=== PATIENT | male | born 1980 | race Caucasian/White ===

== ENCOUNTER → 2017-12-29 00:28 | Outpatient (CLI) | payer OTHER, SELFPAY ==
[2017-12-29 00:47] VITALS: BMI 40.8
[2017-12-29 00:48] VITALS: BP 135/93; PULSE 123; RESP 24; TEMP 37.1
== END | disposition home or self-care (01) ==
PROVIDERS: PCP Family Medicine; Visit Provider Emergency Medicine
DX: R52 Pain, unspecified (principal); M79.1 Myalgia

== ENCOUNTER → 2019-12-19 17:17 | Outpatient (CLI) | payer OTHER, SELFPAY ==
[2019-12-19 17:41] LABS: Basophils # 0.1 K/mm3 (0-0.2); Basophils % 0.6 % (0.1-2.0); Eosinophils # 0.4 K/mm3 (0.0-0.4); Eosinophils % 3.9 % (0.1-12.0); Hematocrit 50.5 % (42.0-52.0); Hemoglobin 16.8 g/dL (14.1-18.0); Lymphocytes # 3.1 K/mm3 (0.7-4.5); Lymphocytes % 33.5 % (10-50); Mean Corpuscular HGB Conc 33.4 g/dL (31.8-35.4); Mean Corpuscular Hemoglobin 31.9 pg (27.0-31.2); Mean Corpuscular Volume 95.7 fl (80-94); Mean Platelet Volume 7.8 fl (7.4-10.4); Monocytes # 0.5 K/mm3 (0.1-1.0); Monocytes % 5.5 % (1.7-9.3); Neutrophils # 5.2 K/mm3 (1.8-7.8); Neutrophils % 56.5 % (37.0-80.0); Platelet Count 224 K/mm3 (142-424); Red Blood Count 5.28 M/mm3 (4.60-6.20); Red Cell Distribution Width 12.6 % (11.5-17.5); White Blood Count 9.3 K/mm3 (4.8-10.8)
[2019-12-19 18:34] LABS: Hemoglobin A1C 7.7 % (0.0-7.0)
[2019-12-19 18:55] LABS: Alanine Aminotransferase 125 U/L (12-78); Albumin Level 3.8 gm/dL (3.4-5.0); Albumin/Globulin Ratio 1.1 (1.1-1.8); Alkaline Phosphatase 97 U/L (46-116); Aspartate Amino Transferase 49 U/L (15-37); Bilirubin,Total 0.7 mg/dL (0.2-1.0); Blood Urea Nitrogen 15 mg/dL (7-18); Chloride 101 mmol/L (98-107); Chol/HDL Ratio 4.7 (1-3.5); Cholesterol 204 mg/dL (140-200); Creatinine,Serum 1.03 mg/dL (0.70-1.30); Estimated Glomerular Filt Rate 80 ml/min (>60); Ferritin 629 ng/mL (8-388); GFR (African American) 97 ML/MIN (>60); Globulin 3.5 gm/dl (1.3-3.2); Glucose 108 mg/dL (74-106); HDL Cholesterol 43 mg/dL (27-67); LDL Cholesterol 135 mg/dL (0-130); Sodium 140 mmol/L (136-145); Thyroid Stimulating Hormone 2.18 uIU/ml (0.358-3.740); Total Protein,Serum 7.3 gm/dL (6.4-8.2); Triglycerides 132 mg/dL (30-200); VLDL Cholesterol 26 mg/dL (0-40)
[2019-12-19 19:30] LABS: Carbon Dioxide 30 mmol/L (21.0-32.0)
== END ==
PROVIDERS: Visit Provider Family Medicine
DX: E78.5 Hyperlipidemia, unspecified (principal); R94.5 Abnormal results of liver function studies; R73.9 Hyperglycemia, unspecified; I10 Essential (primary) hypertension
CPT/HCPCS: 36415; 80053; 80061; 82728; 83036; 84443; 85025

== ENCOUNTER → 2019-12-26 13:21 | Outpatient (CLI) | payer OTHER, SELFPAY | PROVIDERS: PCP Family Medicine; Visit Provider Family Medicine | DX: G47.33 Obstructive sleep apnea (adult) (pediatric) (principal); R06.83 Snoring; I10 Essential (primary) hypertension; E66.9 Obesity, unspecified | CPT/HCPCS: 95806 ==

== ENCOUNTER → 2020-08-30 10:29 | Outpatient (CLI) | payer BC, SELFPAY ==
--- NOTE | 2020-08-30 10:36 | XR_ITS ---
PROCEDURE: XR KNEE RT 3V CLINICAL INDICATION: PAIN IN RT KNEE COMPARISON: CR KNEE3R KNEE-3 VIEWS-RT from 10/30/2013 FINDINGS: The medial lateral joint space appear normal. There is a small fabella. 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 There is no definite effusion. IMPRESSION: No acute findings. Dictated by: Dr. Navjot Yuan MD 08/30/2020 11:06 Dr. Navjot Yuan MD in [place] 08/30/2020 11:06
== END ==
PROVIDERS: PCP Family Medicine; Visit Provider Family Medicine
DX: M25.561 Pain in right knee (principal)
CPT/HCPCS: 73562

== ENCOUNTER 2021-02-04 23:50 | Observation (INO) | payer BC, SELFPAY ==
[2021-02-04 23:50] VITALS: BP 156/88; PULSE 98; RESP 18; TEMP 36.9; O2SAT 95; BMI 41.5
--- NOTE | 2021-02-04 23:55 | XR_ITS ---
PROCEDURE: XR CHEST PORTABLE CLINICAL HISTORY: cp Chest pain, smoker COMPARISON: CR CXR CHEST(2 VIEWS-NOT PORTABLE) from 10/30/2013 FINDINGS: The cardiomediastinal silhouette and pulmonary vascularity are within normal limits. The lungs are clear without infiltrates, suspicious nodules, or pleural effusions. The right CP angle is cut from the image. No acute bony findings. IMPRESSION: No acute finding. The right CP angle is cut off from the image. Consider repeating exam to include the right CP angle if symptoms warrant Dictated by: Berto Toney MD 02/05/2021 05:29 Berto Toney MD in [place] 02/05/2021 05:29
--- NOTE | 2021-02-04 23:56 | ECG_ITS ---
APPROVED REPORT Exam: Resting ECG HR:105 bpm ECG Measurements Heart Rate 105 AXES OK 126 P 54 QRSd 86 QRS 45 QT 340 T 45 QTc 449 Conclusion Sinus tachycardia Otherwise normal ECG Electronically signed by : Donn Gonzalez, 02/05/2021 07:01:57
[2021-02-05] VITALS (9 sets, daily range): BP systolic 93–140; BP diastolic 55–74; PULSE 62–84; RESP 14–18; TEMP 36.6–37.2; O2SAT 95–98; BMI 41.8; BMI 41.6
--- NOTE | 2021-02-05 00:07 | HMH.EDCP ---
ED Disposition Clinical Impression: Unstable angina pectoris Disposition: Admitted as Observation Condition on Discharge: Good Referrals: Cristian Dhillon MD [Primary Care Provider] - - Critical Care Critical Care Time: No Attestation: On , the high probability of a clinically significant, sudden or life threatening deterioration of the following system(s) required my full and direct attention, intervention and personal management. The time I documented below is in addition to time spent performing reported procedures but includes the following listed in this critical care notation. Medical Decision Making - Medical Records Medical records reviewed: Yes: I reviewed the patient's medical records. - Gilles Inquiry Pt receiving controlled substance: No Vital Signs: 02/04/21 23:50 Temperature 98.4 F Temperature Source Oral Pulse Rate [Right] 98 H Respiratory Rate 18 Blood Pressure [Right Arm] 156/88 H Blood Pressure Mean [Right Arm] 110 02 Sat by Pulse Oximetry 95 - Lab Data Lab results reviewed: Yes: I reviewed the patient's lab results. Lab Results 02/05/21 00:15: WBC 11.2 H, RBC 5.14, Hgb 15.9, Hct 49.1, MCV 95.6 H, MCH 30.9, MCHC 32.3, RDW 12.9, Plt Count 185, MPV 7.9, Neut % (Auto) 60.4, Lymph % (Auto) 30.3, [place] % (Auto) 5.4, Eos % (Auto) 3.6, Baso % (Auto) 0.3, Neut # (Auto) 6.7, Lymph # (Auto) 3.4, [place] # (Auto) 0.6, Eos # (Auto) 0.4, Baso # (Auto) 0.0 02/05/21 00:15: Sodium 137, Potassium 3.7, Chloride 102, Carbon Dioxide 26, Anion Gap 12.7, BUN 19, Creatinine 0.90, Estimated Creat Clear 113, Estimated GFR 93, Est GFR ( Amer) 113, Glucose 176 H, Calcium 9.7, Troponin I < 0.01, C-Reactive Protein 3.3 02/05/21 00:15: ESR 18 H Result diagrams: 02/05/21 00:15 02/05/21 00:15 Orders (Tests/Meds): ED MEDICATIONS Generic Name Dose Route Start Last Admin Trade Name Freq PRN Reason Stop Dose Admin Sodium Chloride 1,000 mls @ 999 mls/hr 02/04/21 23:45 02/05/21 00:01 Sod Chlor 0.9% 1000ml Bag IV 02/05/21 00:45 999 mls/hr .Q1H1M CRISTELA Administration Nitroglycerin 0.4 mg 02/04/21 23:57 02/05/21 00:00 Nitroglycerin 0.4mg Sl Tablet SL 03/06/21 23:56 0.4 mg Q5MINP PRN Administration Chest Pain Sodium Chloride 8 ml 02/05/21 02:00 Sodium Chloride 0.9% 10ml Vial IV 03/07/21 01:59 NEEDED PRN dilute pepcid Discontinued Medications Generic Name Dose Route Start Last Admin Trade Name Freq PRN Reason Stop Dose Admin Aspirin 324 mg 02/04/21 23:57 02/05/21 00:00 Aspirin 81mg Chewable Tablet PO 02/04/21 23:58 324 mg ONCE ONE Administration Famotidine 20 mg 02/05/21 02:00 02/05/21 02:02 Famotidine 20mg/2ml Vial IV 02/05/21 02:01 20 mg ONCE ONE Administration Ketorolac Tromethamine 30 mg 02/04/21 23:57 02/05/21 01:17 Ketorolac 30mg/Ml Vial IV 02/04/21 23:58 Not Given ONCE ONE Metoclopramide HCl 10 mg 02/05/21 02:00 02/05/21 02:02 Metoclopramide Hcl 10mg/2ml Vial IVP 02/05/21 02:01 10 mg ONCE ONE Administration Morphine Sulfate 4 mg 02/05/21 00:03 02/05/21 00:13 Morphine 4mg/Ml Syringe IV 02/05/21 00:04 4 mg ONCE ONE Administration Ondansetron HCl 4 mg 02/04/21 23:57 02/05/21 00:00 Ondansetron 4mg/2ml Vial IV 02/04/21 23:58 4 mg ONCE ONE Administration Promethazine HCl 25 mg 02/05/21 00:58 02/05/21 01:16 Promethazine Hcl 25mg/Ml 1ml Vial IV 02/05/21 00:59 25 mg ONCE ONE Administration Sodium Chloride 25 ml 02/05/21 00:58 02/05/21 01:17 Sodium Chloride 0.9% 25ml Bag IV 02/05/21 00:59 25 ml ONCE ONE Administration ORDERS Category Date Time Status XR chest portable Stat Exams 02/04/21 23:55 Taken Full Resp Panel w/COVID ([facility]) Routine Lab 02/05/21 00:30 Received Hemoglobin A1C Stat Lab 02/05/21 00:15 Received Procalcitonin Stat Lab 02/04/21 23:56 Received Troponin I Q3H Lab 02/05/21 03:00 Ordered Troponin I Q3H Lab 02/05/21 06:00 Ordered - R
[2021-02-05 00:25] LABS: Basophils % 0.3 % (0.1-2.0); Eosinophils # 0.4 K/mm3 (0.0-0.4); Eosinophils % 3.6 % (0.1-12.0); Hematocrit 49.1 % (42.0-52.0); Hemoglobin 15.9 g/dL (14.1-18.0); Lymphocytes # 3.4 K/mm3 (0.7-4.5); Lymphocytes % 30.3 % (10-50); Mean Corpuscular HGB Conc 32.3 g/dL (31.8-35.4); Mean Corpuscular Hemoglobin 30.9 pg (27.0-31.2); Mean Corpuscular Volume 95.6 fl (80-94); Mean Platelet Volume 7.9 fl (7.4-10.4); Monocytes # 0.6 K/mm3 (0.1-1.0); Monocytes % 5.4 % (1.7-9.3); Neutrophils # 6.7 K/mm3 (1.8-7.8); Neutrophils % 60.4 % (37.0-80.0); Platelet Count 185 K/mm3 (142-424); Red Blood Count 5.14 M/mm3 (4.60-6.20); Red Cell Distribution Width 12.9 % (11.5-17.5); White Blood Count 11.2 K/mm3 (4.8-10.8)
[2021-02-05 00:32] LABS: Chloride 102 mmol/L (98-107)
[2021-02-05 00:33] LABS: Sodium 137 mmol/L (136-145)
[2021-02-05 00:35] LABS: Blood Urea Nitrogen 19 mg/dl (9-20); Creatinine Clearance Estimated 113 mL/min (50-200); Estimated Glomerular Filt Rate 93 ml/min (>60); GFR (African American) 113 ML/MIN (>60); Potassium 3.7 mmoL/L (3.5-5.1)
[2021-02-05 00:36] LABS: Anion Gap 12.7 mEq/L (5-15); Calcium 9.7 mg/dl (8.4-10.2); Carbon Dioxide 26 mmol/L (22.0-30.0); Glucose 176 mg/dl (74-100)
[2021-02-05 00:41] LABS: C-Reactive Protein 3.3 mg/L (0-4)
[2021-02-05 01:22] LABS: Troponin I < 0.01 ng/ml (0.00-0.034)
[2021-02-05 01:28] LABS: Erythrocyte Sedimentation Rate 18 mm/hr (0-15)
[2021-02-05 01:30] LABS: Adenovirus,PCR Not Detected (NotDetected); Bordetella Pertussis Not Detected (NotDetected); Chlamydophila Pneumoniae, PCR Not Detected (NotDetected); Coronavirus 19, PCR Not Detected (NotDetected); Coronavirus 229E Not Detected (NotDetected); Coronavirus NL63 Not Detected (NotDetected); Coronavirus OC43 Not Detected (NotDetected); Coronovirus HKU1,PCR Not Detected (NotDetected); Human Metapneumovirus Not Detected (NotDetected); Influenza A, PCR Not Detected (NotDetected); Influenza AH1, 2009 Not Detected (NotDetected); Influenza AH1, PCR Not Detected (NotDetected); Influenza AH3,PCR Not Detected (NotDetected); Influenza B, PCR Not Detected (NotDetected); Mycoplasma Pneumoniae, PCR Not Detected (NotDetected); Parainfluenza 1, PCR Not Detected (NotDetected); Parainfluenza 2, PCR Not Detected (NotDetected); Parainfluenza 3, PCR Not Detected (NotDetected); Parainfluenza 4, PCR Not Detected (NotDetected); Respiratory Syncytial Virus Not Detected (NotDetected); Rhinovirus/Enterovirus Not Detected (NotDetected)
[2021-02-05 02:09] LABS: Hemoglobin A1C 7.7 % (4.0-6.0)
[2021-02-05 02:40] LABS: Procalcitonin 0.073 ng/mL (0.0-2.0)
--- NOTE | 2021-02-05 03:03 | PC.NURSE ---
PT ARRIVED TO FLOOR VIA W/C FROM ED W/STAFF AT 0303
[2021-02-05 03:25] LABS: Troponin I < 0.01 ng/ml (0.00-0.034)
[2021-02-05 06:26] LABS: Anion Gap 8.7 mEq/L (5-15); Basophils % 0.4 % (0.1-2.0); Blood Urea Nitrogen 18 mg/dl (9-20); Carbon Dioxide 25 mmol/L (22.0-30.0); Chloride 106 mmol/L (98-107); Chol/HDL Ratio 3.3 (1-3.5); Cholesterol 118 mg/dl (140-200); Creatinine Clearance Estimated 113 mL/min (50-200); Eosinophils # 0.4 K/mm3 (0.0-0.4); Eosinophils % 3.5 % (0.1-12.0); Estimated Glomerular Filt Rate 93 ml/min (>60); GFR (African American) 113 ML/MIN (>60); Glucose 162 mg/dl (74-100); HDL Cholesterol 36 mg/dl (40-60); Hematocrit 44.9 % (42.0-52.0); Hemoglobin 14.5 g/dL (14.1-18.0); Lymphocytes # 3.7 K/mm3 (0.7-4.5); Mean Corpuscular HGB Conc 32.3 g/dL (31.8-35.4); Mean Corpuscular Hemoglobin 30.9 pg (27.0-31.2); Mean Corpuscular Volume 95.8 fl (80-94); Mean Platelet Volume 8.3 fl (7.4-10.4); Monocytes # 0.6 K/mm3 (0.1-1.0); Monocytes % 5.4 % (1.7-9.3); Neutrophils # 6.5 K/mm3 (1.8-7.8); Neutrophils % 57.7 % (37.0-80.0); Platelet Count 191 K/mm3 (142-424); Potassium 3.7 mmoL/L (3.5-5.1); Red Blood Count 4.69 M/mm3 (4.60-6.20); Sodium 136 mmol/L (136-145); Triglycerides 132 mg/dl (30-150); VLDL Cholesterol 26 mg/dL (0-40); White Blood Count 11.2 K/mm3 (4.8-10.8)
[2021-02-05 06:44] LABS: Troponin I < 0.01 ng/ml (0.00-0.034)
[2021-02-05 07:11] LABS: Calcium 8.5 mg/dl (8.4-10.2)
--- NOTE | 2021-02-05 07:26 | HMH.PHAVTE ---
[facility] Pharmacy VTE Monitoring - Patient Demographics Admission date: 02/04/21 Report Date: 02/05/21 Time: 07:26 Allergies/Adverse Reactions: Patient Allergies No Known Allergies Allergy (Unverified 02/05/21 07:25) Height: 1.78 m Weight: 132.024 kg Patient Problems: Current Active Problems Unstable angina pectoris (Acute) - VTE Risk Labs: VTE Related Lab Results Hgb 14.5 g/dL (14.1-18.0) 02/05/21 05:37 Hct 44.9 % (42.0-52.0) 02/05/21 05:37 Plt Count 191 K/mm3 (142-424) 02/05/21 05:37 BUN 18 mg/dl (9-20) 02/05/21 05:37 Creatinine 0.90 mg/dl (0.66-1.25) 02/05/21 05:37 Estimated Creat Clear 113 mL/min (50-200) 02/05/21 05:37 VTE Score: 1 - Prophylaxis VTE Prophylaxis Ordered?: Yes Types of VTE Prophylaxis: TEDS Knee High Location of Applied Device: Bilateral Lower Extremeties
--- NOTE | 2021-02-05 07:26 | HMH.PHAINT ---
MEDICATION RECONCILIATION COMPLETED ON PATIENT USING EXTERNAL FILL HISTORY FROM PHARMACY. -UYEN FELDER, HECTORD
--- NOTE | 2021-02-05 08:00 | CA_ITS ---
APPROVED REPORT EXAM: Comprehensive 2D, Doppler, and color-flow Echocardiogram Cook Dessert: María Ogden RVT Ht: 5 ft 10 in Wt: 290lbs BSA: 2.44 BP: 156/88 mmHg Indications: CP,OBESITY,DM,HTN,FAMILY HX HD,HX SMOKING 2D Dimensions LVOT 2.21 cm (M/F) 1.5-2.5 LA Volume 29.10 mL LA Volume Index 11.92 mL/m2 (M/F) 16-34 M-Mode Dimensions RVDd 2.46 cm (0.9-2.6) LA Diam 3.86 cm (1.9-4.0) LVDd 6.46 cm (3.5-5.7) Ao Diam 2.85 cm (2.0-3.7) LVDs 4.12 cm (3.5-5.7) IVSd 0.34 cm (0.6-1.1) PWd 0.59 cm (0.6-1.1) EF (Teich) 64.70% FS 36.20% EDV (Teich) 213.00 mL ESV (Teich) 75.10 mL LV Diastology E Decel Time 197.00 (160-240 msec) E/A Ratio 1.2 MED E' 10.10 (< 7 cm/sec) E'/MED E' Ratio 8.62 (>14) LAT E' 12.60 (<10 cm/sec) E/LAT E' Ratio 6.91 (>14) Mitral Valve MV E Max Johny. 87.00 (40-130 cm/s) MV A Velocity 73.00 (40-130 cm/s) E/A Ratio 1.19 MV Decel. Time 197.00 (160-240 ms) MV PHT 58.00 ms Pulmonary Valve PV Peak Velocity 57.00 (50-150 cm/s) Tricuspid Valve TR P. Velocity 273.00 cm/s RAP Estimate 10.00 mmHg RVSP 39.90 mmHg Left Ventricle Left atrium is normal size, left ventricle is normal size, there is no concentric left ventricular hypertrophy, visually estimated ejection fraction 55% with no regional wall motion abnormality, diastolic parameters are within normal range. Right Ventricle Right atrium and right ventricle are normal size and contractility. Aortic Valve Aortic valve is minimally thickened and fibrosed, there is no aortic stenosis or aortic insufficiency. Mitral Valve Mitral valve grossly normal, there is trace mitral regurgitation. Tricuspid Valve Tricuspid grossly normal, there is trace tricuspid regurgitation, tricuspid regurgitation jet velocity is inadequate for calculation of the right ventricular systolic pressure. Pulmonic Valve Pulmonic valve is poorly visualized. Great Vessels Aortic root is normal size. Pericardium No significant pericardial effusion noted. Conclusion 1. Normal left ventricular size, preserved left ventricular systolic function, visually estimated ejection fraction 55% with no regional wall motion abnormality, diastolic parameters are within normal range. 2. Trace mitral and tricuspid regurgitation. 3. No significant pericardial effusion noted. Electronically signed by : Luis Cruz, 02/05/2021 09:29:41
--- NOTE | 2021-02-05 08:18 | HMH.HP ---
*Admission Date: 02/04/21 <Shikha Hernandez - 02/05/21 08:31> *Chief complaint: chest pain <Shikha Hernandez 02/05/21 08:31> *History of present illness: Mr. Yousif is a 40-year-old male with a history of hypertension and hyperlipidemia who presented to the ER last night with chest pain. Patient states he had a very long day at work. He had a migraine throughout the day which went away with some [id number] migraine medication. He also had some nausea and has had nausea for the past 2 weeks with eating. He states he went on a work call last night in [facility] and had to do heavy lifting and carry someone up a hill. He states he got very short of breath and began having pain all across his chest. He was extremely nauseated and felt like he could vomit. He felt like someone was sitting on his chest and therefore presented to the emergency room. He states he was very anxious that he was having a heart attack. He was diaphoretic and his heart was racing. He states they did an EKG in the emergency room and when he was told it was clear, he did begin feeling somewhat better. He was given morphine and this did not seem to help. He was given Phenergan and he states this made him sleep and this morning his chest pain, shortness of breath, and nausea has resolved. <Shikha Hernandez - 02/05/21 08:31> [facility] History I have reviewed the patient's past medical history: Yes <Shikha Hernandez 02/05/21 08:31> Medical History: Reports:: Depression, Diabetes Mellitus Type 2, Hyperlipidemia, Hypertension Denies:: Cancer, Diabetes Mellitus Type 1, Internal Pacemaker, MRSA <Shikha Hernandez 02/05/21 08:31> *Have you ever received a pneumonia vaccine?: No <Shikha Hernandez 02/05/21 08:31> *Have you received a flu vaccine this season?: Yes <Shikha Hernandez 02/05/21 08:31> Other Medical History: Reports: Other <Shikha Hernandez 02/05/21 08:31> Other Surgeries: Yes: No Previous Surgery. No: Pacemaker <Shikha Hernandez 02/05/21 08:31> Amputation: No <Shikha Hernandez 02/05/21 08:31> Fractures: Yes <Shikha Hernandez 02/05/21 08:31> - *Social History Last grade of school completed: Advanced degree <Shikha Hernandez 02/05/21 08:31> Smoking Status: Current every day smoker <Shikha Hernandez 02/05/21 08:31> Tobacco Type: cigarettes <Shikha Hernandez 02/05/21 08:31> # Packs/Day (cigarettes): 1 <Shikha Hernandez 02/05/21 08:31> Alcohol Intake: current <Shikha Hernandez 02/05/21 08:31> Alcohol Intake Frequency:: holidays/special occasions only <Shikha Hernandez 02/05/21 08:31> Substance Use Type: denies use <Shikha Hernandez 02/05/21 08:31> *Occupational Status:: employed <Shikha Hernandez 02/05/21 08:31> Housing: house <Shikha Hernandez 02/05/21 08:31> Household Members: spouse <Shikha Hernandez 02/05/21 08:31> *Travel in the last 8 weeks: None <Shikha Hernandez 02/05/21 08:31> - Psychiatric History Pschychiatric History:: Reports:: Depression <Shikha Hernandez 02/05/21 08:31> Family Hx:: Diabetes, Heart Attack, Hyperlipidemia, Hypertension, Alcoholism <Shikha Hernandez 02/05/21 08:31> Review of Systems - Constitutional Denies chills, Denies fever(s), Denies weakness <Shikha Hernandez 02/05/21 08:31> - Eyes Denies blurry vision, Denies double vision <Shikha Hernandez 02/05/21 08:31> - ENT Denies nasal congestion, Denies sore throat <Shikha Hernandez 02/05/21 08:31> - *Cardiovascular Reports chest pain, Reports shortness of breath, Reports rapid, pounding, or irregular heartbeat, Denies leg swelling, Denies radiating jaw, neck or arm pain <Shikha Hernandez 02/05/21 08:31> - *Respiratory Reports shortness of breath, Denies cough <Shikha Hernandez 02/05/21 08:31> - *Gastrointestinal Reports abdominal pain (epigastric), Reports nausea, Denies loose stools, Denies vomiting <Shikha Hernandez 02/05/21 08:31> - *Genitourinary Denies difficulty urinating, Denies painful urination <Shikha Hernandez 02/05/21 08:31> - *Musculoskeletal Reports
--- NOTE | 2021-02-05 10:31 | US_ITS ---
PROCEDURE: US ABDOMEN LIMITED CLINICAL INDICATION: chest pain COMPARISON: No exams were available for comparison FINDINGS: PANCREAS: Unremarkable. No obvious mass or abnormal fluid collection. No ductal dilatation LIVER: No focal liver lesions demonstrated. Homogeneous echogenicity. No intrahepatic biliary ductal dilatation evident. There is appropriate direction of blood flow within a non dilated portal vein RIGHT KIDNEY: Unremarkable. Normal size and echogenicity. No hydronephrosis GALLBLADDER: There is an 8 mm stone in the region of the neck of the gallbladder. The gallbladder is slightly distended measuring 9 x 4.4 cm. No gallbladder wall thickening or pericholecystic fluid evident. Common bile duct is normal at 3 mm. IMPRESSION: 8 mm stone in the neck of the gallbladder with mild gallbladder distention Dictated by: Berto Toney MD 02/05/2021 13:54 Berto Toney MD in [place] 02/05/2021 13:54
[2021-02-05 13:59] LABS: Alanine Aminotransferase 52 U/L (12-78); Alkaline Phosphatase 90 U/L (38-126); Aspartate Amino Transferase 34 U/L (17-59); Bilirubin,Direct 0.1 mg/dl (0.0-0.4); Bilirubin,Indirect 0.4 mg/dL (0.0-0.9); Bilirubin,Total 0.5 mg/dl (0.2-1.3); Bilirubin,Unconjugated 0.4 mg/dL (0.0-1.1)
[2021-02-05 14:00] LABS: Albumin Level 3.8 g/dl (3.5-5.0); Total Protein,Serum 6.9 g/dl (6.3-8.2)
--- NOTE | 2021-02-05 16:44 | HMH.GSCON ---
*Admission Date: 02/04/21 *Reason for consult:: Cholelithiasis; GB distention; epigastric/right upper quadrant pain *History of present illness: This is a 40-year-old gentleman seen in consultation from Dr. Dhillon for evaluation regarding epigastric/right upper quadrant pain, cholelithiasis, and gallbladder distention. He presented to the emergency department overnight with increasing epigastric pain/chest pain. He was concerned about possible myocardial infarction. Evaluation has included an EKG and cardiac enzymes. No obvious sign of infarction noted. An additional complaint was of recent severe nausea. An ultrasound was completed for evaluation of his gallbladder. A stone within the neck of the gallbladder was noted. Some concomitant distention was also noted. Forwarded from admission H&P: Mr. Yousif is a 40-year-old male with a history of hypertension and hyperlipidemia who presented to the ER last night with chest pain. Patient states he had a very long day at work. He had a migraine throughout the day which went away with some [id number] migraine medication. He also had some nausea and has had nausea for the past 2 weeks with eating. He states he went on a work call last night in [facility] and had to do heavy lifting and carry someone up a hill. He states he got very short of breath and began having pain all across his chest. He was extremely nauseated and felt like he could vomit. He felt like someone was sitting on his chest and therefore presented to the emergency room. He states he was very anxious that he was having a heart attack. He was diaphoretic and his heart was racing. He states they did an EKG in the emergency room and when he was told it was clear, he did begin feeling somewhat better. He was given morphine and this did not seem to help. He was given Phenergan and he states this made him sleep and this morning his chest pain, shortness of breath, and nausea has resolved. Review of Systems - Constitutional Denies fever(s) - Eyes Denies change in vision - ENT Denies difficulty swallowing - *Cardiovascular Denies fainting - *Respiratory Denies cough - *Gastrointestinal Reports abdominal pain, Reports nausea - *Genitourinary Denies blood in urine - *Musculoskeletal Denies deformity - Integumentary/Breasts Denies new lesions - *Neurologic Reports headache(s), Denies localized weakness, Denies seizure-like activity, Denies dizziness, Denies weakness - Psychiatric Denies anxiety - Endocrine Denies cold intolerance - Hematologic/Lymphatic Denies easy bleeding - Allergic/Immunologic Denies wheezing [facility] History Medical History: Reports:: Depression, Diabetes Mellitus Type 2, Hyperlipidemia, Hypertension Denies:: Cancer, Diabetes Mellitus Type 1, Internal Pacemaker, MRSA *Have you ever received a pneumonia vaccine?: No *Have you received a flu vaccine this season?: Yes Other Medical History: Reports: Other Other Surgeries: Yes: No Previous Surgery. No: Pacemaker Amputation: No Fractures: Yes - *Social History Last grade of school completed: Advanced degree Smoking Status: Current every day smoker Tobacco Type: cigarettes # Packs/Day (cigarettes): 1 Alcohol Intake: current Alcohol Intake Frequency:: holidays/special occasions only Substance Use Type: denies use *Occupational Status:: employed Housing: house Household Members: spouse *Travel in the last 8 weeks: None - Psychiatric History Pschychiatric History:: Reports:: Depression Family Hx:: Diabetes, Heart Attack, Hyperlipidemia, Hypertension, Alcoholism Meds Home Medications Medication Instructions Recorded Confirmed Type metformin 500 mg tablet 500 mg PO BIDWM 09/18/20 02/05/21 History Atorvastatin Calcium [Lipitor 40mg 40 mg PO HS 02/05/21 02/05/21 History Tab] Fluoxetine HCl [Prozac 20mg 20 mg PO DAILY 02/05/21 02/05/21 History Capsule] lisinopriL [Zestril 10mg Tab] 10 mg P
--- NOTE | 2021-02-05 18:32 | PC.NURSE ---
Pt is a&ox4. Pt has complained of pain x1, not requiring any pain medications. PRN medications ordered for pain per MD Dhillon this shift. Pt remains NSR on tele. Pt walks independently in room w/ steady balance and gait. No other acute changes or complaints at this time.
[2021-02-06] VITALS (23 sets, daily range): BP systolic 104–155; BP diastolic 43–91; PULSE 54–109; RESP 14–20; TEMP 36.4–43; O2SAT 90–100; BMI 41.7
--- NOTE | 2021-02-06 06:47 | HMH.GSPN ---
Subjective Patient reports: feels better, still having pain Progress Note: A&P (1) Hypertension Status: Acute (2) Hyperlipemia Status: Acute (3) Type 2 diabetes mellitus Status: Acute (4) Unstable angina pectoris Status: Acute (5) Cholelithiasis Status: Acute (6) Gallbladder hydrops Status: Acute Assessment and plan: Cholecystectomy later today (7) Epigastric pain Status: Acute (8) Right upper quadrant abdominal tenderness Status: Acute Exam Vital signs and Labs for Last 24 Hours: Temp Pulse Resp BP Pulse Ox 97.6 F 64 16 130/67 99 02/06/21 04:00 02/06/21 04:00 02/06/21 04:00 02/06/21 04:00 02/06/21 04:00 Laboratory Results - last 24 hr 02/05/21 05:37: Sodium 136, Potassium 3.7, Chloride 106, Carbon Dioxide 25, Anion Gap 8.7, BUN 18, Creatinine 0.90, Estimated Creat Clear 113, Estimated GFR 93, Est GFR ( Amer) 113, Glucose 162 H, Calcium 8.5 D, Triglycerides 132, Cholesterol 118 L, LDL Cholesterol Direct 48.70 L, VLDL Cholesterol 26, HDL Cholesterol 36 L, Cholesterol/HDL Ratio 3.3 02/05/21 05:37: Total Bilirubin 0.5, Direct Bilirubin 0.1, Conjugated Bilirubin 0.0, Indirect Bilirubin 0.4, Unconjugated Bilirubin 0.4, AST 34, ALT 52, Alkaline Phosphatase 90, Total Protein 6.9, Albumin 3.8 I & O for Last 24 hours: Intake & Output 02/03/21 02/04/21 02/05/21 02/06/21 11:59 11:59 11:59 11:59 Intake Total 1999 240 / 240 Balance 1999 240 / 240 Weight 291 lb 1 oz 291 lb 5 oz - Constitutional no acute distress - *Routine Respiratory Exam Absent: respiratory distress - *Routine Cardiovascular Exam Present: RRR
--- NOTE | 2021-02-06 07:03 | PC.NURSE ---
Patient VS WNL throughout shift. Consent form signed for Laproscopic Cholesectomy. Shows no s/s of acute distress noted at this time. Call light within reach, bed at lowest level for safety. Will continue to monitor.
--- NOTE | 2021-02-06 08:19 | HMH.ACPN2 ---
<Shikha Hernandez - Last Filed: 02/06/21 08:19> Internal Medicine - PN: Subj *Date: 02/06/21 *Time: 08:19 Interval history: Patient states he feels great this morning. He has had no further pain since yesterday. He slept well. He was seen by Dr. Reed who plans to take out his gallbladder today. Exam Vital signs and Labs for Last 24 Hours: Temp Pulse Resp BP Pulse Ox 97.8 F 72 16 127/80 95 02/06/21 08:00 02/06/21 08:00 02/06/21 08:00 02/06/21 08:00 02/06/21 08:00 Laboratory Results - last 24 hr 02/05/21 05:37: Total Bilirubin 0.5, Direct Bilirubin 0.1, Conjugated Bilirubin 0.0, Indirect Bilirubin 0.4, Unconjugated Bilirubin 0.4, AST 34, ALT 52, Alkaline Phosphatase 90, Total Protein 6.9, Albumin 3.8 I & O for Last 24 hours: Intake & Output 02/03/21 02/04/21 02/05/21 02/06/21 11:59 11:59 11:59 11:59 Intake Total 1999 840 / 840 Balance 1999 840 / 840 Weight 291 lb 1 oz 291 lb 5 oz Radiology Reports for the Last 24 Hours: Echo 1. Normal left ventricular size, preserved left ventricular systolic function, visually estimated ejection fraction 55% with no regional wall motion abnormality, diastolic parameters are within normal range. 2. Trace mitral and tricuspid regurgitation. 3. No significant pericardial effusion noted. RUQ U/S 8 mm stone in the neck of the gallbladder with mild gallbladder distention - Constitutional no acute distress - *Routine Respiratory Exam Present: CTA bilaterally - *Routine Cardiovascular Exam Present: RRR - *Routine Abdominal Exam Present: soft, normoactive bowel sounds. Absent: tenderness - *Routine Extremities Exam Absent: cyanosis, clubbing, edema - *Routine Skin Exam Present: warm. Absent: rash - *Routine Neurological Exam Present: alert, oriented X3 Assessment and Plan (1) Hypertension Status: Acute Category: Medical Code(s): I10 - Essential (primary) hypertension (2) Hyperlipemia Status: Acute Category: Medical Code(s): E78.5 - Hyperlipidemia, unspecified (3) Type 2 diabetes mellitus Status: Acute Category: Medical Code(s): E11.9 - Type 2 diabetes mellitus without complications (4) Unstable angina pectoris Status: Acute Category: Medical Code(s): I20.0 - Unstable angina (5) Cholelithiasis Status: Acute Category: Medical Code(s): K80.20 - Calculus of gallbladder without cholecystitis without obstruction (6) Gallbladder hydrops Status: Acute Category: Medical Code(s): K82.1 - Hydrops of gallbladder (7) Epigastric pain Status: Acute Category: Medical Code(s): R10.13 - Epigastric pain (8) Right upper quadrant abdominal tenderness Status: Acute Category: Medical Code(s): R10.811 - Right upper quadrant abdominal tenderness - Assessment and plan all Dx Assessment and Plan for all problems:: Patient is scheduled for gallbladder removal today. <Cristian Dhillon - Last Filed: 02/06/21 08:48> Internal Medicine - PN: Subj *Date: 02/06/21 *Time: 08:47 Exam Vital signs and Labs for Last 24 Hours: Temp Pulse Resp BP Pulse Ox 97.8 F 72 16 127/80 95 02/06/21 08:00 02/06/21 08:00 02/06/21 08:00 02/06/21 08:00 02/06/21 08:00 Laboratory Results - last 24 hr 02/05/21 05:37: Total Bilirubin 0.5, Direct Bilirubin 0.1, Conjugated Bilirubin 0.0, Indirect Bilirubin 0.4, Unconjugated Bilirubin 0.4, AST 34, ALT 52, Alkaline Phosphatase 90, Total Protein 6.9, Albumin 3.8 I & O for Last 24 hours: Intake & Output 02/03/21 02/04/21 02/05/21 02/06/21 23:59 23:59 23:59 23:59 Intake Total 2240 / 2240 600 / 600 Balance 2240 / 2240 600 / 600 Weight 290 lb 291 lb 0.163 oz 291 lb 5 oz Assessment and Plan (1) Hypertension Status: Acute Category: Medical Code(s): I10 - Essential (primary) hypertension (2) Hyperlipemia Status: Acute Category: Medical Code(s): E78.5 - Hyperlipidemia, unspecified (3) Type 2 diabetes jose
--- NOTE | 2021-02-06 15:29 | PC.NURSE ---
Pt off floor in surgery at this time.
--- NOTE | 2021-02-06 16:29 | HMH.ANESCL ---
[facility] Anesthesia Checklist - Patient Identification Patient Identification: Arm Band - Structural Data Admitted From: Home Planned Operative Procedure/s: laparoscopic cholecystectomy Consent for Planned Operative Procedure(s) Verified: Yes Verified Documents: Surgical Consent, History and Physical - NPO Status Verified Time NPO: 00:00 - Additional verifications Anesthesia Reactions: No - Airway Assessment C-Spine Mobility Assessed: Yes (mp2) TMJ Mobility Assessed: Yes Dentition: Good Dentition - Neurological Assessment Level of Consciousness: Awake, Alert - Anesthesia Plan Anesthesia Risk discussed: Yes Anesthesia Plan: Verified ASA Class: III Anesthesia Type: General [facility] History I have reviewed the patient's past medical history: Yes Medical History: Reports:: Depression, Diabetes Mellitus Type 2, Hyperlipidemia, Hypertension Denies:: Cancer, Diabetes Mellitus Type 1, Internal Pacemaker, MRSA *Have you ever received a pneumonia vaccine?: No *Have you received a flu vaccine this season?: Yes Other Medical History: Reports: Other Anesthesia experience/problems:: nac Other Surgeries: Yes: Other. No: Pacemaker Amputation: No Fractures: Yes - *Social History Last grade of school completed: Advanced degree Smoking Status: Current every day smoker Tobacco Type: cigarettes # Packs/Day (cigarettes): 1 Alcohol Intake: current Alcohol Intake Frequency:: holidays/special occasions only Substance Use Type: denies use *Occupational Status:: employed Housing: house Household Members: spouse *Travel in the last 8 weeks: None - Psychiatric History Pschychiatric History:: Reports:: Depression Family Hx:: Diabetes, Heart Attack, Hyperlipidemia, Hypertension, Alcoholism
--- NOTE | 2021-02-06 16:45 | PC.NURSE ---
Pt continues to be off floor at this time in surgery.
--- NOTE | 2021-02-06 17:10 | HMH.OPNOTE ---
Date of procedure: 02/06/21 Pre-op Diagnosis:: Gallbladder hydrops Symptomatic cholelithiasis Acute calculus cholecystitis Post-op Diagnosis:: Same Procedure performed:: Laparoscopic cholecystectomy Surgeon:: Wilber Reed MD ORANGE PICKING SUPERVISOR:: Onel Gomez Anesthesia: GETA Estimated blood loss (mL): 10 Operative findings:: Gallbladder distention Infundibular thickening Operative note:: After informed consent was obtained, the patient was taken to the operating room and placed in the supine position. General anesthesia was induced and the abdomen was prepped and draped in a sterile fashion. After infiltration with local anesthetic an infraumbilical incision was made. A Veress needle was placed in position. The abdomen was insufflated. A 5 mm optical trocar was placed in position. Under direct visualization, a 12 mm trocar was placed in the subxiphoid position and 2 additional 5 mm trocars were placed in the right upper quadrant. The gallbladder was elevated up and over the liver margin. The tissue around the cystic duct was carefully dissected. 3 clips were placed proximally and the duct was transected with harmonic renata. Harmonic renata were then utilized to dissect the gallbladder away from the liver margin with careful attention to the control of the cystic artery. The gallbladder was placed in a retrieval bag and removed through the subxiphoid trocar site. The right upper quadrant was thoroughly irrigated. No active bleeding or bile leak was noted. Fascia at the subxiphoid trocar site was reapproximated utilizing the NeoClose device. The remaining trocars were removed. All wounds were irrigated and skin was closed with 4-0 Monocryl in a subcuticular fashion. Steri-Strips were applied. The patient's anesthetic agents were reversed and extubation was completed prior to transfer to recovery in stable condition. Condition: stable Disposition: PACU Specimens:: Gallbladder and contents Complications:: No immediate
--- NOTE | 2021-02-06 17:13 | HMH.ANESI ---
[facility] Anesthesia Record Part I Intake, IV Amount: 900 Estimated blood loss (mL): 10 Urine output (mL): 0 Blood Pressure: 110/43 SaO2: 90 Pulse Rate: 73 Respiratory Rate: 16 Temperature: 99.3 F Patient is:: Drowsy, Stable Stable to PACU at:: 17:05
[2021-02-06 17:19] LABS: POC Glucose,Bedside 134 (70-110)
--- NOTE | 2021-02-06 17:24 | SUR.PHASEI ---
1712-checked fsbs with results of 134, notified Lissett,HOME SERVICE DIRECTOR no further orders
--- NOTE | 2021-02-06 17:43 | PC.NURSE ---
1731-detailed report called to BROOKS Rios 1736-pt transported to med surg room 215 via hospital bed w/ramesh rails up and left in care of BROOKS Rios with bed locked in lowest position, vss, pt stable
--- NOTE | 2021-02-06 20:36 | PC.NURSE ---
Pt has had prn norco and zofran since coming back to floor from pacu. Pt did eat some supper and states nausea has improved some and has been intermittently sleeping. VSS. Dsgs to abd are cdi and the top dsg does have scant amt of sangious drainage. BROOKS Turner has been given report on pt. Call masterson in reach.
[2021-02-07 00:25] VITALS: BP 121/77; PULSE 109; RESP 16; TEMP 36.8; O2SAT 93
[2021-02-07 04:00] VITALS: BP 124/75; PULSE 90; RESP 18; TEMP 36.3; O2SAT 95
[2021-02-07 05:00] VITALS: BMI 41.3
--- NOTE | 2021-02-07 06:00 | PC.NURSE ---
NO ACUTE CHANGES FROM PREVIOUS ASSESSMENT,NO NEW DRAINAGE TO TOP LAP SITE FROM [place],PT DENIES PASSING ANY FLATUS JUST,BELCHING MEDICATED A COUPLE TIMES TONIGHT.POSTIVE BOWEL SOUNDS X 4 QUADS
--- NOTE | 2021-02-07 06:49 | HMH.GSPN ---
Subjective Patient reports: no new complaints (He states that he feels good enough to go home ) Progress Note: A&P (1) Hypertension Status: Acute (2) Hyperlipemia Status: Acute (3) Type 2 diabetes mellitus Status: Acute (4) Cholelithiasis Status: Acute (5) Gallbladder hydrops Status: Acute Assessment and plan: Overall, doing well status post laparoscopic cholecystectomy. Likely discharge home soon with outpatient follow-up. (6) Epigastric pain Status: Acute (7) Right upper quadrant abdominal tenderness Status: Acute Exam Vital signs and Labs for Last 24 Hours: Temp Pulse Resp BP Pulse Ox 98.3 F 109 H 16 121/77 93 L 02/07/21 00:25 02/07/21 00:25 02/07/21 00:25 02/07/21 00:25 02/07/21 00:25 Laboratory Results - last 24 hr 02/06/21 17:12: POC Glucose 134 H I & O for Last 24 hours: Intake & Output 02/04/21 02/05/21 02/06/21 02/07/21 11:59 11:59 11:59 11:59 Intake Total 1999 840 / 840 1260 / 1260 Balance 1999 840 / 840 1260 / 1260 Weight 291 lb 1 oz 291 lb 5 oz - Constitutional no acute distress - *Routine Respiratory Exam Absent: respiratory distress - *Routine Cardiovascular Exam Present: tachycardia - *Routine Abdominal Exam Present: soft, tenderness (Appropriate postoperative tenderness) Comments: Dressings in place. No erythema.
[2021-02-07 08:00] VITALS: BP 145/79; PULSE 71; RESP 18; TEMP 36.8; O2SAT 94
--- NOTE | 2021-02-07 08:15 | HMH.ACPN2 ---
<Shikha Hernandez - Last Filed: 02/07/21 08:15> Internal Medicine - PN: Subj *Date: 02/07/21 *Time: 08:15 Interval history: The patient had his gallbladder removed yesterday. He tolerated this well and feels better today other than pain along the surgical sites in his stomach. He was able to rest and has eaten. He feels he can go home today. Exam Vital signs and Labs for Last 24 Hours: Temp Pulse Resp BP Pulse Ox 97.4 F L 90 18 124/75 95 02/07/21 04:00 02/07/21 04:00 02/07/21 04:00 02/07/21 04:00 02/07/21 04:00 Laboratory Results - last 24 hr 02/06/21 17:12: POC Glucose 134 H I & O for Last 24 hours: Intake & Output 02/04/21 02/05/21 02/06/21 02/07/21 11:59 11:59 11:59 11:59 Intake Total 1999 840 / 840 1858 / 1858 Balance 1999 840 / 840 1858 / 1858 Weight 291 lb 1 oz 291 lb 5 oz 289 lb 1 oz - Constitutional no acute distress - *Routine Respiratory Exam Present: CTA bilaterally - *Routine Cardiovascular Exam Present: RRR - *Routine Abdominal Exam Present: soft, normoactive bowel sounds, tenderness (Around surgical sites, dressings in place) - *Routine Extremities Exam Absent: cyanosis, clubbing, edema - *Routine Skin Exam Present: warm. Absent: rash - *Routine Neurological Exam Present: alert, oriented X3 Assessment and Plan (1) Hypertension Status: Acute Category: Medical Code(s): I10 - Essential (primary) hypertension (2) Hyperlipemia Status: Acute Category: Medical Code(s): E78.5 - Hyperlipidemia, unspecified (3) Type 2 diabetes mellitus Status: Acute Category: Medical Code(s): E11.9 - Type 2 diabetes mellitus without complications (4) Cholelithiasis Status: Acute Category: Medical Code(s): K80.20 - Calculus of gallbladder without cholecystitis without obstruction (5) Gallbladder hydrops Status: Acute Category: Medical Code(s): K82.1 - Hydrops of gallbladder (6) Epigastric pain Status: Acute Category: Medical Code(s): R10.13 - Epigastric pain (7) Right upper quadrant abdominal tenderness Status: Acute Category: Medical Code(s): R10.811 - Right upper quadrant abdominal tenderness - Assessment and plan all Dx Assessment and Plan for all problems:: Patient can likely be discharged today and will need a prescription for some pain medication. He will need to follow-up with Dr. Reed. <Cristian Dhillon - Last Filed: 02/07/21 09:02> Internal Medicine - PN: Subj *Date: 02/07/21 *Time: 09:02 Exam Vital signs and Labs for Last 24 Hours: Temp Pulse Resp BP Pulse Ox 97.4 F L 90 18 124/75 95 02/07/21 04:00 02/07/21 04:00 02/07/21 04:00 02/07/21 04:00 02/07/21 04:00 Laboratory Results - last 24 hr 02/06/21 17:12: POC Glucose 134 H I & O for Last 24 hours: Intake & Output 02/04/21 02/05/21 02/06/21 02/07/21 23:59 23:59 23:59 23:59 Intake Total 2240 / 2240 1860 / 1860 598 / 598 Balance 2240 / 2240 1860 / 1860 598 / 598 Weight 290 lb 291 lb 0.163 oz 291 lb 5 oz 289 lb 1 oz Assessment and Plan (1) Hypertension Status: Acute Category: Medical Code(s): I10 - Essential (primary) hypertension (2) Hyperlipemia Status: Acute Category: Medical Code(s): E78.5 - Hyperlipidemia, unspecified (3) Type 2 diabetes mellitus Status: Acute Category: Medical Code(s): E11.9 - Type 2 diabetes mellitus without complications (4) Cholelithiasis Status: Acute Category: Medical Code(s): K80.20 - Calculus of gallbladder without cholecystitis without obstruction (5) Gallbladder hydrops Status: Acute Category: Medical Code(s): K82.1 - Hydrops of gallbladder (6) Epigastric pain Status: Acute Category: Medical Code(s): R10.13 - Epigastric pain (7) Right upper quadrant abdominal tenderness Status: Acute Category: Medical Code(s): R10.811 - Right upper quadrant abdominal tenderness - Assessment and plan all Dx Assessment and Plan f
--- NOTE | 2021-02-07 15:25 | P.PN_ITS ---
[facility] Anesthesia Record Part II Discharge Time: 17:35 Destination: floor PACU nurse assessment reviewed?: Yes Patient Condition:: Good Anesthesia Complications:: None Swallowing reflex intact?: Yes Cyanosis?: No Blood Pressure: 153/87 Pulse Rate: 63 Temperature: 98.3 F Mental Status: Alert & Oriented Pain level:: 2 Nausea and/or vomitting:: None Intake, IV Amount: 1,500
[2021-02-07 15:26] VITALS: BP 153/87; PULSE 63; TEMP 36.8
--- NOTE | 2021-02-12 14:35 | HMH.DCSUM ---
General - General Admission date:: 02/05/21 Discharge date: 02/07/21 HPI HPI: Mr. Yousif is a 40-year-old male with a history of hypertension and hyperlipidemia who presented to the ER last night with chest pain. Patient states he had a very long day at work. He had a migraine throughout the day which went away with some [id number] migraine medication. He also had some nausea and has had nausea for the past 2 weeks with eating. He states he went on a work call last night in 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 He states he got very short of breath and began having pain all across his chest. He was extremely nauseated and felt like he could vomit. He felt like someone was sitting on his chest and therefore presented to the emergency room. He states he was very anxious that he was having a heart attack. He was diaphoretic and his heart was racing. He states they did an EKG in the emergency room and when he was told it was clear, he did begin feeling somewhat better. He was given morphine and this did not seem to help. He was given Phenergan and he states this made him sleep and this morning his chest pain, shortness of breath, and nausea has resolved. Hospital Course Hospital Course: The patient was admitted and his chest x-ray showed nothing acute. His sed rate and white blood cell count were slightly elevated but his cardiac enzymes were normal x3. His chest pain resolved and was ruled out for TX with EKG and enzymes. It was felt he would need a stress test and he wanted his case discussed with Dr. Singh Rivero who is a beading machine operator in [place]. He had an echo showing an EF of 55%. An abdominal ultrasound was ordered due to his abdominal discomfort and nausea. It showed an 8 mm stone in the neck of the gallbladder with mild gallbladder distention. Surgery was consulted and it was felt he would need cholecystectomy. He had a laparoscopic cholecystectomy performed on 02/06/2021 and tolerated the procedure well. By 02/07/2021 he was stable to be discharged home with outpatient follow-up. Objective Vital signs: Temp Pulse Resp BP Pulse Ox 98.3 F 63 18 153/87 H 94 L 02/07/21 15:26 02/07/21 15:26 02/07/21 08:00 02/07/21 15:26 02/07/21 08:00 Narrative: - Constitutional no acute distress - *Routine HEENT Exam Head: Present: normocephalic Eye: Present: EOMI, PERRL ENT: Present: mucous membranes moist - *Routine Neck Exam Present: supple. Absent: lymphadenopathy - *Routine Respiratory Exam Present: CTA bilaterally - *Routine Cardiovascular Exam Present: RRR - *Routine Abdominal Exam Present: soft, normoactive bowel sounds. Absent: tenderness - *Routine Extremities Exam Absent: cyanosis, clubbing, edema - *Routine Skin Exam Present: warm. Absent: rash - *Routine Neurological Exam Present: alert, oriented X3 DS: Diagnosis - Discharge Diagnosis (1) Hypertension Status: Acute (2) Hyperlipemia Status: Acute (3) Type 2 diabetes mellitus Status: Acute (4) Cholelithiasis Status: Acute (5) Gallbladder hydrops Status: Acute (6) Epigastric pain Status: Acute (7) Right upper quadrant abdominal tenderness Status: Acute Discharge Plan - Patient Discharge Instructions ACTIVITY: Continue current activity DIET: continue same diet Patient Instructions: DI for Gallstones, DI for Laparoscopic Cholecystectomy - Follow up Plan Follow up with: Wilber Reed MD [Staff Physician] - 02/19/21 1:00 pm (1-2 weeks) Disposition: Home, Self-Group Home Medications: Home Medications Medication Instructions Recorded Confirmed Type metformin 500 mg tablet 500 mg PO BIDWM 09/18/20 02/05/21 History Atorvastatin Calcium [Lipitor 40mg 40 mg PO HS 02/05/21 02/05/21 History Tab] Fluoxetine HCl [Prozac 20mg 20 mg PO DAILY 02/05/21 02/05/21 History Capsule] lisinopriL [Zestril 10
== END 2021-02-07 10:27 | disposition home or self-care (01) ==
LOC: ER 02-05 00:11 → 2ND 02-05 02:34
PROVIDERS: Surgery; Admitting Provider Family Medicine; Emergency Provider Emergency Medicine; PCP Family Medicine; Visit Provider Family Medicine
PROC: 0FT44ZZ Resection of Gallbladder, Percutaneous Endoscopic Approach (ICD-10-PCS; CPT 47562; principal; 2021-02-06 13:30)
DX: K80.00 Calculus of gallbladder with acute cholecystitis without obstruction (principal); E11.9 Type 2 diabetes mellitus without complications; Z79.84 Long term (current) use of oral hypoglycemic drugs; K82.1 Hydrops of gallbladder; I10 Essential (primary) hypertension; E78.5 Hyperlipidemia, unspecified; G43.909 Migraine, unspecified, not intractable, without status migrainosus; Z72.0 Tobacco use; I20.0 Unstable angina
CPT/HCPCS: 47562; 36415; 71045; 76705; 80048; 80061; 80076; 82962; 83036; 84145; 84484; 85025; 85651; 86140; 87581; 87633; 87798; 93005; 93306; 96365; 96375; 99284; G0378; J2405; J2710

== ENCOUNTER 2021-07-26 12:45 | Outpatient (CLI) | payer BC, SELFPAY ==
[2021-07-26 13:30] VITALS: BP 115/66; PULSE 73; RESP 16; TEMP 36.7; O2SAT 95
[2021-07-26 15:15] VITALS: BP 128/79; PULSE 78; RESP 15; TEMP 36.8; O2SAT 98
== END 2021-07-26 15:16 | disposition home or self-care (01) ==
LOC: COVID.OUT 12:46 → INF 12:50
PROVIDERS: PCP Family Medicine; Visit Provider Internal Medicine Adolescent Medicine
DX: U07.1 COVID-19 (principal)
CPT/HCPCS: 96365

== ENCOUNTER → 2021-09-03 13:15 | Outpatient (CLI) | payer BC, SELFPAY ==
--- NOTE | 2021-09-03 13:20 | MR_ITS ---
PROCEDURE INFORMATION: Exam: MR Right Lower Extremity Joint Without Contrast, Knee Exam date and time: 09/03/2021 1:20 PM Age: 41 years old Clinical indication: Pain; Knee; Right; Additional info: Right anterior knee pain , locking of right knee. Right anterior knee pain, old injury. TECHNIQUE: Imaging protocol: MR of the Right lower extremity joint without contrast. Exam focused on the knee. COMPARISON: CR XR KNEE RT 3V 08/30/2020 10:48 AM FINDINGS: Bones/joints: No acute fracture. Prominent bipartite patella. Small ossicles along tibial tuberosity. No dislocation. Mild signal changes within cartilage along lateral facet of patella at synchondrosis. Fluid: No significant joint effusion. No Sommers's cyst. Medial meniscus: Intrasubstance signal abnormality. No definite tear. Lateral meniscus: No definite tear. Anterior cruciate ligament: Intact. Posterior cruciate ligament: Intact. Medial capsule and supporting structures: Intact. Lateral capsule and supporting structures: Intact. Extensor mechanism of knee: Intact. Muscles: Unremarkable. Soft tissues: Unremarkable. IMPRESSION: 1. No acute findings. 2. Prominent bipartite patella.
--- NOTE | 2021-09-03 13:21 | MR_ITS ---
PROCEDURE INFORMATION: Exam: MR Lumbar Spine Without Contrast Exam date and time: 09/03/2021 1:21 PM Age: 41 years old Clinical indication: Low back pain; Additional info: Acute right sided low back pain with right sided sciatica. Low back pain, bilateral leg numbness worse on the right, no injury. Symptoms x3 weeks. TECHNIQUE: Imaging protocol: Multiplanar magnetic resonance images of the lumbar spine without intravenous contrast. COMPARISON: US ABDOMEN LIMITED 02/05/2021 11:03 AM FINDINGS: Vertebrae: Multiple incidental vertebral body hemangiomas. Normal alignment. Mild multilevel facet osteoarthritis. Spinal cord: Conus medullaris terminates in normal position at L1-L2. No conus compression. L1-L2: No disc herniation or spinal stenosis. No significant foraminal stenosis. L2-L3: No disc herniation or spinal stenosis. No significant foraminal stenosis. L3-L4: No disc herniation or spinal stenosis. No significant foraminal stenosis. L4-L5: 6 mm midline disc protrusion extending inferiorly from the disc space. No spinal stenosis or nerve root compression. No significant foraminal stenosis. L5-S1: Disc degeneration with broad-based posterior disc bulge. No spinal stenosis. Moderate foraminal stenosis, worse on the left. Soft tissues: Unremarkable. IMPRESSION: 1. 6 mm midline disc protrusion at L4-L5. No significant spinal stenosis or nerve root compression. 2. Small posterior disc bulge at L5-S1 without significant spinal stenosis. Left greater than right bilateral foraminal stenosis. 3. Multilevel facet osteoarthritis.
== END ==
PROVIDERS: PCP Family Medicine; Visit Provider Nurse Practitioner Family
DX: M23.91 Unspecified internal derangement of right knee (principal); M54.16 Radiculopathy, lumbar region
CPT/HCPCS: 72148; 73721; 76376

== ENCOUNTER → 2021-12-12 11:47 | Outpatient (CLI) | payer BC, SELFPAY | PROVIDERS: Visit Provider Nurse Practitioner | DX: U07.1 COVID-19 (principal) | CPT/HCPCS: C9803; U0003; U0005 ==

== ENCOUNTER 2023-04-15 17:17 | Emergency (ER) | payer BC, SELFPAY ==
[2023-04-15 17:19] VITALS: BP 136/64; PULSE 94; RESP 19; TEMP 36.8; O2SAT 97; BMI 38.7
--- NOTE | 2023-04-15 17:35 | CT_ITS ---
PROCEDURE INFORMATION: Exam: CT Abdomen And Pelvis Without Contrast Exam date and time: 04/15/2023 5:39 PM Age: 43 years old Clinical indication: Other: R/O kidney stones; Additional info: Possible kidney stone TECHNIQUE: Imaging protocol: Computed tomography of the abdomen and pelvis without contrast. Radiation optimization: All CT scans at this facility use at least one of these dose optimization techniques: automated exposure control; mA and/or kV adjustment per patient size (includes targeted exams where dose is matched to clinical indication); or iterative reconstruction. REPORTING DATA: Count of CT and Cardiac NM exams in prior 12 months: This patient has received 0 known CTs and 0 known cardiac nuclear medicine studies in the 12 months prior to the current study. COMPARISON: US ABDOMEN LIMITED 08/31/2021 11:03 FINDINGS: Liver: Hepatic steatosis. Gallbladder and bile ducts: Gallbladder is absent. Pancreas: Normal. No ductal dilation. Spleen: Normal. No splenomegaly. Adrenal glands: Normal. No mass. Kidneys and ureters: There is a 2 mm calculus in the proximal right ureter. Nonobstructing bilateral nephrolithiasis. Stomach and bowel: Mild sigmoid diverticulosis without diverticulitis. Appendix: Unremarkable appendix. Intraperitoneal space: Unremarkable. No free air. No significant fluid collection. Vasculature: The arteries demonstrate minimal atherosclerotic disease. Lymph nodes: Unremarkable. No enlarged lymph nodes. Urinary bladder: Unremarkable as visualized. Reproductive: Unremarkable as visualized. Bones/joints: Unremarkable. No acute fracture. Soft tissues: Unremarkable. Other findings: Stigmata of old granulomatous disease. IMPRESSION: 1. There is a 2 mm calculus in the proximal right ureter. 2. Nonobstructing bilateral nephrolithiasis. 3. Hepatic steatosis.
[2023-04-15 17:57] LABS: Basophils % 0.2 % (0.1-2.0); Eosinophils # 0.2 K/mm3 (0.0-0.4); Eosinophils % 1.8 % (0.1-12.0); Hematocrit 53.6 % (42.0-52.0); Hemoglobin 17.1 g/dL (14.1-18.0); Lymphocytes # 1.7 K/mm3 (0.7-4.5); Lymphocytes % 14.7 % (10-50); Mean Corpuscular Hemoglobin 30.5 pg (27.0-31.2); Mean Corpuscular Volume 95.5 fl (80-94); Mean Platelet Volume 8.4 fl (7.4-10.4); Monocytes # 0.5 K/mm3 (0.1-1.0); Neutrophils # 9.3 K/mm3 (1.8-7.8); Neutrophils % 79.3 % (37.0-80.0); Platelet Count 210 K/mm3 (142-424); Red Blood Count 5.61 M/mm3 (4.60-6.20); Red Cell Distribution Width 12.5 % (11.5-17.5); White Blood Count 11.8 K/mm3 (4.8-10.8)
[2023-04-15 18:06] LABS: Chloride 93 mmol/L (98-107); Sodium 136 mmol/L (136-145)
[2023-04-15 18:09] LABS: Blood Urea Nitrogen 13 mg/dl (9-20); Creatinine Clearance Estimated 183 mL/min (50-200); Estimated Glomerular Filt Rate 92 ml/min (>60); GFR (African American) 111 ML/MIN (>60)
[2023-04-15 18:10] LABS: Calcium 9.6 mg/dl (8.4-10.2); Carbon Dioxide 30 mmol/L (22.0-30.0); Glucose 291 mg/dl (74-100)
[2023-04-15 18:58] LABS: Microscopic, Urine URINE MICROSCOPIC (MICROSCOPIC)
--- NOTE | 2023-04-15 19:46 | HMH.EDGENADL ---
Discharge Plan Disposition Patient Disposition: Home, Self-Care Condition: Good Prescriptions Prescriptions: New tamsulosin [Flomax] 0.4 mg capsule 0.4 mg PO HS Qty: 14 0RF ketorolac 10 mg tablet 10 mg PO Q8H PRN (Reason: pain) Qty: 14 0RF ondansetron 4 mg tablet,disintegrating 4 mg PO Q6H PRN (Reason: nausea and vomiting) Qty: 10 0RF hydrocodone-acetaminophen 7.5-325 mg tablet 1 tab PO Q8H PRN (Reason: pain) Qty: 10 0RF No Action metformin 500 mg tablet 1,000 mg PO ONCE atorvastatin 40 MG tablet 40 mg PO HS lisinopril 10 MG tablet 10 mg PO DAILY tadalafil 20 mg tablet 20 mg PO NEEDED PRN (Reason: sexual intercourse) Ozempic 0.25 mg or 0.5 mg (2 mg/3 mL) pen injector 0.5 mg SQ WEEKLY Label Comments: INJECT 0.5 MG SUBCUTANEOUSLY ONCE A WEEK Referrals Follow up/Referrals: Cristian Dhillon MD [Primary Care Provider] - See instructions Clinical Impressions Clinical Impression: Right kidney stone Instructions Patient Instructions: DI for Kidney Stones Print Language Print Language: German Discharge ED Provider: Fabien Mares General Adult HPI General Chief complaint: Urogenital-Male Stated complaint: kidney stones Time Seen by Provider: 04/15/23 19:55 Mode of Arrival: Ambulatory Source of Information: Patient Limitations: No Limitations Description of Symptoms (Recalled from ER Triage Doc. by RN): 43 M presents from home with right flank pain that started this AM. Over the last 4 hours it has gotten more severe. Patient has history of kidney stones in the past. History of Present Illness HPI narrative: Patient presents to the emergency department with right flank pain. The patient states that he has had kidney stones in the past and has had similar symptoms to a kidney stone. The patient denies any fever, chills, cough or congestion. Describes nausea without vomiting. States that the pain extends down to the right groin. Denies any dysuria, hematuria or frequency Related Data Home Medications Medication Instructions Recorded Confirmed atorvastatin 40 mg tablet 40 mg PO HS Cholesterol 02/05/21 04/15/23 lisinopril 10 mg tablet 10 mg PO DAILY Hypertension 02/05/21 04/15/23 metformin 500 mg tablet 1,000 mg PO ONCE Diabetes 12/24/21 04/15/23 semaglutide 0.25 mg or 0.5 mg (2 0.5 mg SQ WEEKLY Weight loss 04/15/23 04/15/23 mg/3 mL) subcutaneous pen injector (Ozempic) tadalafil 20 mg tablet 20 mg PO NEEDED PRN sexual 04/15/23 04/15/23 intercourse Previous Rx's Medication Instructions Recorded hydrocodone 7.5 mg-acetaminophen 1 tab PO Q8H PRN pain #10 tabs 04/15/23 325 mg tablet ketorolac 10 mg tablet 10 mg PO Q8H PRN pain #14 tabs 04/15/23 ondansetron 4 mg disintegrating 4 mg PO Q6H PRN nausea and 04/15/23 tablet vomiting #10 tabs tamsulosin 0.4 mg capsule (Flomax) 0.4 mg PO HS #14 caps 04/15/23 Allergies Allergy/AdvReac Type Severity Reaction Status Date / Time No Known Allergies Allergy Verified 08/11/22 11:04 [facility] Disclaimer: The information contained in this section may have been updated after the patient was seen, as this information can be updated by other users. Medical History Fracture of right forearm Surgical History S/P cholecystectomy Family History Other Coronary artery disease Diabetes Heart attack Hyperlipidemia Hypertension Social History Smoking Status: Never smoker alcohol intake: current substance use type: denies use current occupational status: employed Travel in the last 8 weeks: None household members: spouse and children housing: house marital status: current occupational exposures/hazards: No caffeine: Yes ROS O
[2023-04-15 19:50] LABS: Appearance,Urine CLEAR (Clear); Bilirubin,Urine Negative (Negative); Blood, Urine 3+ (Negative); Color,Urine YELLOW (Yellow); Glucose,Urine (UA) 3+ (Negative); Ketones,Urine TRACE (Negative); Leukocyte Esterase,Urine Negative (Negative); Nitrate,Urine Negative (Negative); PH,Urine 5.5 (5.0-8.5); Protein,Urine Negative (Negative); Specific Gravity, Urine 1.025 (1.005-1.030); Urobilinogen,Urine 0.2 EU/dl (0.2)
[2023-04-15 20:08] LABS: Squamous Epithelial Cell,Urine Occasional #/hpf (0-5)
[2023-04-15 20:09] VITALS: BP 143/74; PULSE 79; RESP 17; TEMP 36.8; O2SAT 97
== END 2023-04-15 20:11 | disposition home or self-care (01) ==
PROVIDERS: Emergency Provider Emergency Medicine; PCP Family Medicine
DX: R10.9 Unspecified abdominal pain; N20.2 Calculus of kidney with calculus of ureter
CPT/HCPCS: 74176; 80048; 81001; 85025; 96361; 96374; 96375; 99284; 99285; J2405

== ENCOUNTER 2023-04-19 13:12 | Emergency (ER) | payer BC, SELFPAY ==
[2023-04-19 13:13] VITALS: BP 180/86; PULSE 101; RESP 17; TEMP 36.4; O2SAT 97; BMI 43.8
[2023-04-19 13:16] VITALS: BP 200/131; PULSE 110; O2SAT 95
--- NOTE | 2023-04-19 13:17 | CT_ITS ---
FINAL REPORT TECHNIQUE: Axial images through the abdomen and pelvis were performed without contrast.This study was performed with techniques to keep radiation doses as low as reasonably achievable, (ALARA). Individualized dose reduction techniques using automated exposure control or adjustment of mA and/or kV according to the patient's size were employed. CLINICAL HISTORY: RT FLANK PAIN COMPARISON: 04/15/2023 FINDINGS: ABDOMEN: The lung bases are clear. The heart size is normal. Limited images of the liver demonstrate fatty infiltration. The patient is status post cholecystectomy. The spleen is normal. No adrenal mass is identified. The aorta is normal in caliber. There is no significant free fluid or adenopathy. There is persistent, mild right hydronephrosis secondary to a 2 mm right UPJ stone, unchanged from prior exam. Again seen are several less than 3 mm nonobstructing left renal stones. PELVIS: The appendix is normal. There is mild urinary bladder wall thickening which is likely inflammatory. There is sigmoid diverticulosis without evidence of diverticulitis. There is no significant free fluid or adenopathy. IMPRESSION: Stable, 2 mm right UPJ stone with mild right hydronephrosis. Reviewed, Interpreted and Dictated by Edson Horta III, MD Transcribed by Felicitas Pemberton Authenticated and [facility]
[2023-04-19 13:19] VITALS: BP 180/86; PULSE 107; O2SAT 96
[2023-04-19 13:28] LABS: Microscopic, Urine URINE MICROSCOPIC (MICROSCOPIC)
[2023-04-19 13:29] LABS: Appearance,Urine CLEAR (Clear); Bilirubin,Urine Negative (Negative); Blood, Urine 2+ (Negative); Color,Urine YELLOW (Yellow); Glucose,Urine (UA) TRACE (Negative); Ketones,Urine Negative (Negative); Leukocyte Esterase,Urine Negative (Negative); Nitrate,Urine Negative (Negative); PH,Urine 5.5 (5.0-8.5); Protein,Urine Negative (Negative); Specific Gravity, Urine 1.025 (1.005-1.030); Urobilinogen,Urine 0.2 EU/dl (0.2)
[2023-04-19 13:30] LABS: Basophils % 0.4 % (0.1-2.0); Eosinophils # 0.3 K/mm3 (0.0-0.4); Eosinophils % 3.9 % (0.1-12.0); Hematocrit 51.1 % (42.0-52.0); Lymphocytes # 1.9 K/mm3 (0.7-4.5); Lymphocytes % 24.4 % (10-50); Mean Corpuscular HGB Conc 33.2 g/dL (31.8-35.4); Mean Corpuscular Hemoglobin 31.8 pg (27.0-31.2); Mean Corpuscular Volume 95.8 fl (80-94); Mean Platelet Volume 8.6 fl (7.4-10.4); Monocytes # 0.4 K/mm3 (0.1-1.0); Monocytes % 4.6 % (1.7-9.3); Neutrophils # 5.3 K/mm3 (1.8-7.8); Neutrophils % 66.7 % (37.0-80.0); Platelet Count 186 K/mm3 (142-424); Red Blood Count 5.33 M/mm3 (4.60-6.20); Red Cell Distribution Width 12.5 % (11.5-17.5); White Blood Count 7.9 K/mm3 (4.8-10.8)
[2023-04-19 13:37] LABS: Chloride 101 mmol/L (98-107); Potassium 3.9 mmoL/L (3.5-5.1); Sodium 138 mmol/L (136-145)
[2023-04-19 13:39] LABS: Blood Urea Nitrogen 11 mg/dl (9-20); Creatinine Clearance Estimated 99 mL/min (50-200); Estimated Glomerular Filt Rate 92 ml/min (>60); GFR (African American) 111 ML/MIN (>60)
[2023-04-19 13:40] LABS: Alanine Aminotransferase 95 U/L (12-78); Albumin Level 4.2 g/dl (3.5-5.0); Albumin/Globulin Ratio 1.2 (1.1-1.8); Alkaline Phosphatase 112 U/L (38-126); Anion Gap 11.9 mEq/L (5-15); Aspartate Amino Transferase 54 U/L (17-59); Bilirubin,Total 1.1 mg/dl (0.2-1.3); Calcium 9.3 mg/dl (8.4-10.2); Carbon Dioxide 29 mmol/L (22.0-30.0); Globulin 3.4 g/dL (1.3-3.2); Glucose 253 mg/dl (74-100); Total Protein,Serum 7.6 g/dl (6.3-8.2)
[2023-04-19 13:46] LABS: WBC,Urine Occasional #/hpf (0-3)
[2023-04-19 13:47] LABS: Bacteria,Urine Trace /lpf
--- NOTE | 2023-04-19 13:51 | HMH.EDGENADL ---
Discharge Plan Disposition Patient Disposition: Home, Self-Care Prescriptions Prescriptions: New oxycodone 5 mg capsule 5 mg PO Q6H PRN (Reason: pain) Qty: 12 0RF ondansetron 4 mg tablet,disintegrating 4 mg PO Q8H PRN (Reason: Nausea) Qty: 15 0RF No Action metformin 500 mg tablet 1,000 mg PO ONCE atorvastatin 40 MG tablet 40 mg PO HS lisinopril 10 MG tablet 10 mg PO DAILY tadalafil 20 mg tablet 20 mg PO NEEDED PRN (Reason: sexual intercourse) Ozempic 0.25 mg or 0.5 mg (2 mg/3 mL) pen injector 0.5 mg SQ WEEKLY Label Comments: INJECT 0.5 MG SUBCUTANEOUSLY ONCE A WEEK tamsulosin [Flomax] 0.4 mg capsule 0.4 mg PO HS Qty: 14 0RF ketorolac 10 mg tablet 10 mg PO Q8H PRN (Reason: pain) Qty: 14 0RF ondansetron 4 mg tablet,disintegrating 4 mg PO Q6H PRN (Reason: nausea and vomiting) Qty: 10 0RF hydrocodone-acetaminophen 7.5-325 mg tablet 1 tab PO Q8H PRN (Reason: pain) Qty: 10 0RF Referrals Follow up/Referrals: Cristian Dhillon MD [Primary Care Provider] - See instructions Activity Restrictions/Add. Instructions Additional Instructions/Restrictions: Return for worsening pain vomiting or any other concerns within the next 8 hours otherwise follow-up with your urologist within the next week Clinical Impressions Clinical Impression: Renal colic Instructions Patient Instructions: DI for Acute Abdominal Pain Discharge ED Provider: Kar Butler General Adult HPI General Chief complaint: Abdominal Pain Stated complaint: Possible kidney stone lower back pain Time Seen by Provider: 04/19/23 13:15 Mode of Arrival: Ambulatory Source of Information: Patient Limitations: No Limitations Description of Symptoms (Recalled from ER Triage Doc. by RN): pt to ED right flank pain. pt reports he was diagnosed with a kidney stone last week and started feeling better until this afternoon when his pain and nausea returned. History of Present Illness HPI narrative: 43-year-old male with history of recent diagnosis of renal colic presents with left-sided flank pain. He says that the pain had gotten better since he was evaluated last week he has been taking his Flomax and pain medicine however the pain came on today and was sharp and nature. He is requesting another CAT scan and some pain medicine for evaluation management. No fever dysuria hematuria abdominal pain otherwise. Related Data Home Medications Medication Instructions Recorded Confirmed atorvastatin 40 mg tablet 40 mg PO HS Cholesterol 02/05/21 04/15/23 lisinopril 10 mg tablet 10 mg PO DAILY Hypertension 02/05/21 04/15/23 metformin 500 mg tablet 1,000 mg PO ONCE Diabetes 12/24/21 04/15/23 semaglutide 0.25 mg or 0.5 mg (2 0.5 mg SQ WEEKLY Weight loss 04/15/23 04/15/23 mg/3 mL) subcutaneous pen injector (KitCheck) tadalafil 20 mg tablet 20 mg PO NEEDED PRN sexual 04/15/23 04/15/23 intercourse Previous Rx's Medication Instructions Recorded hydrocodone 7.5 mg-acetaminophen 1 tab PO Q8H PRN pain #10 tabs 04/15/23 325 mg tablet ketorolac 10 mg tablet 10 mg PO Q8H PRN pain #14 tabs 04/15/23 ondansetron 4 mg disintegrating 4 mg PO Q6H PRN nausea and 04/15/23 tablet vomiting #10 tabs tamsulosin 0.4 mg capsule (Flomax) 0.4 mg PO HS #14 caps 04/15/23 ondansetron 4 mg disintegrating 4 mg PO Q8H PRN Nausea #15 tabs 04/19/23 tablet oxycodone 5 mg capsule 5 mg PO Q6H PRN pain #12 caps 04/19/23 Allergies Allergy/AdvReac Type Severity Reaction Status Date / Time No Known Allergies Allergy Verified 08/11/22 11:04 [facility] Disclaimer: The information contained in this section may have been updated after the patient was seen, as this information can be updated by other users. Medical History Fracture of right forearm Surgical History S/P cholecystectomy Family History (Re
--- NOTE | 2023-04-19 14:10 | PC.NURSE ---
er at bedside
--- NOTE | 2023-04-19 14:23 | PC.NURSE ---
pt need nothing at this time, tap masterson at bedside
--- NOTE | 2023-04-19 15:10 | PC.NURSE ---
pt need nothing at this time, finishing fluid up then pt is being discharged home
[2023-04-19 15:22] VITALS: BP 164/86; PULSE 76; RESP 17; TEMP 36.6; O2SAT 97
== END 2023-04-19 15:51 | disposition home or self-care (01) ==
PROVIDERS: Emergency Provider Emergency Medicine; PCP Family Medicine
DX: N23 Unspecified renal colic (principal)
CPT/HCPCS: 74176; 80053; 81001; 85025; 96361; 96374; 96375; 96376; 99285; J2405

== ENCOUNTER → 2023-11-06 11:38 | Outpatient (CLI) | payer BC, SELFPAY ==
[2023-11-06 11:43] LABS: Microscopic, Urine URINE MICROSCOPIC (MICROSCOPIC)
[2023-11-06 12:04] LABS: Appearance,Urine CLEAR (Clear); Bilirubin,Urine Negative (Negative); Blood, Urine Negative (Negative); Color,Urine YELLOW (Yellow); Glucose,Urine (UA) 2+ (Negative); Ketones,Urine Negative (Negative); Leukocyte Esterase,Urine Negative (Negative); Nitrate,Urine Negative (Negative); PH,Urine 5.5 (5.0-8.5); Protein,Urine Negative (Negative); Specific Gravity, Urine >= 1.030 (1.005-1.030); Urobilinogen,Urine 0.2 EU/dl (0.2)
[2023-11-06 12:25] LABS: Squamous Epithelial Cell,Urine Occasional #/hpf (0-5)
== END ==
PROVIDERS: PCP Family Medicine; Visit Provider Family Medicine
DX: R30.0 Dysuria (principal); B95.1 Streptococcus, group B, as the cause of diseases classified elsewhere
CPT/HCPCS: 81001; 87086

== ENCOUNTER 2025-11-05 11:05 | Day surgery (SDC) | payer BC, SELFPAY ==
--- NOTE | 2025-10-30 09:15 | EXP.HP ---
History of Present Illness *Admission Date: 11/05/25 *History of present illness: Mr. Yousif is a 45-year-old gentleman who is here for initial screening colonoscopy. The examination is deemed medically necessary for screening colonoscopy. The patient has been seen, interviewed and examined prior to the procedure by both myself and the anesthesia provider. [facility] Disclaimer: The information contained in this section may have been updated after the patient was seen, as this information can be updated by other users. Medical History Fracture of right forearm Surgical History S/P cholecystectomy Family History Other Coronary artery disease Diabetes Heart attack Hyperlipidemia Hypertension Social History Smoking Status: Never smoker alcohol intake: current alcohol intake frequency: a few times a month substance use type: denies use current occupational status: employed Travel in the last 8 weeks?: None household members: spouse and children housing: house marital status: current occupational exposures/hazards: No caffeine: Yes Have you lived/traveled outside [place] in past 30 days?: No Contact w/someone who lives/traveled outside US past 30 days?: No Exposure to someone with infectious disease in past 14 days?: No Do you have a fever (greater than 100.4 F or 38 C)?: No Have you tested positive for COVID-19?: No Exposed to someone with COVID-19 in past 14 days?: No Do you have a sore throat?: No Do you have a cough?: No Do you have any weakness?: No Do you have any diarrhea?: No Are you experiencing any unusual bleeding?: No Do you have any muscle aches/pain?: No Do you have any abdominal pain?: No Are you experiencing loss of taste or smell?: No Other Medical History Have you received the Flu Vaccine for this season: No Have you received the Pneumonia Vaccine: No Review of Systems Review of Systems Review of systems (narrative): Negative *Cardiovascular Comments: Negative *Gastrointestinal Comments: Negative *Genitourinary Comments: Negative *Musculoskeletal Comments: Negative *Neurologic Comments: Negative Meds Home Medications and Allergies Home Medications ?Medication ?Instructions ?Recorded ?Confirmed ?Type lisinopril 10 mg tablet 10 mg PO DAILY Hypertension 02/05/21 11/05/25 History metformin 500 mg tablet 1,000 mg PO ONCE Diabetes 12/24/21 11/05/25 History atorvastatin 40 mg tablet 40 mg PO HS Cholesterol 06/23/23 11/05/25 History empagliflozin 25 mg tablet 25 mg PO DAILY Diabetes 06/06/25 11/05/25 History (Jardiance) semaglutide 0.25 mg or 0.5 mg (2 0.5 mg SQ WEEKLY Weight loss 06/06/25 11/05/25 History mg/3 mL) subcutaneous pen injector (OzempVenJuvo) New Prescriptions to Start Prescriptions: Allergies Allergy/AdvReac Type Severity Reaction Status Date / Time No Known Allergies Allergy Verified 11/01/25 14:03 Exam *Routine HEENT Exam Head: Present normocephalic Eye: Present EOMI and PERRL ENT: Present mucous membranes moist *Routine Neck Exam Neck: Present supple *Routine Respiratory Exam Respiratory: Present CTA bilaterally *Routine Cardiovascular Exam Cardiovascular: Present RRR *Routine Abdominal Exam Abdominal: Present soft and normoactive bowel sounds; Absent tenderness *Routine Rectal Exam Rectal:: deferred *Routine Genitalia Exam Genitalia:: deferred *Routine Extremities Exam Extremities: Absent cyanosis, clubbing or edema *Routine Skin Exam Skin: Present warm; Absent rash *Routine Neurological Exam Neurological: Present alert and oriented X3 Assessment and Plan *Assessment and plan (1) Screening for colon cancer: Status: Acute Category: Medical Code(s): Z12.11 - Encounter for screening for malignant neoplasm of colon Plan A/P: 1. Screening for colon cancer is the preprocedural diagnosis. The patient will be anesthetized/sedated using MAC sedation. The patient has been seen and examined. Cardiac and lung assessment prior to the examination is stable. Proceed with planned screening colonoscopy.
[2025-11-01 14:02] VITALS: BMI 34.4
--- NOTE | 2025-11-05 07:02 | P.PCN_ITS ---
[facility] Procedure Note Date: 11/05/25 Time: 12:35 Procedure Note:: Colonoscopy Procedure Report: Colonoscopy with cold snare polypectomy Endoscopist: Kyle Issa II, MD Referring physician: Cristian Dhillon MD Date of Procedure: November 05, 2025 Equipment: Olympus [id number] adult colonoscope Sedation: MAC sedation Indication: Mr. Yousif is a 45-year-old gentleman who is here for initial screening colonoscopy. The patient reports no abdominal pain, weight loss, change in his bowel habits or rectal bleeding. He reports no family history of colon cancer. The patient does state that since his cholecystectomy, he will have intermittent bouts of postprandial urgency/diarrhea depending on what he eats. The examination is deemed medically necessary for screening colonoscopy. Procedure: Prior to the procedure, a history and physical exam was performed, and patient's medications and allergies were reviewed. The risks, benefits and alternatives of the sedation and procedure were discussed with the patient. All questions were answered and informed consent was obtained. The patient was brought to the procedure room. Patient identification and proposed procedure were verified by the physician and the nurse. The patient was placed in a left lateral decubitus position and the scope was passed under direct vision. Throughout the procedure, the patient's blood pressure, pulse, and oxygen saturations were monitored continuously. The colonoscopy was accomplished without difficulty. The patient tolerated the procedure well. Findings: On digital rectal examination there was normal rectal tone. There were no external hemorrhoids. The prostate was 2+, smooth, soft, symmetric without nodules. The colonoscope was introduced through the anal canal to the rectum and advanced to the cecum. The ileocecal valve and appendiceal orifice were identified. The scope was advanced a short distance into the ileum which appeared grossly normal. The scope was then withdrawn into the colon. There were 3 polyps (cecum x 1 (8 mm), descending x 1 (4 mm) and rectal x 1 (5 mm)). These were all removed via cold snare polypectomy. The remaining cecum, ascending and transverse colon and mucosa were grossly normal. There were mildly scattered diverticuli throughout the descending and sigmoid colon (LEFT colon). The rectum itself was normal. Upon retroflexion within the rectum there were grade 1-2 internal hemorrhoids. The preparation was excellent throughout with [place] Preparation Score of 9. The cecal time was 12 minutes. Impression: 1. Colonic polyps x 3 2. Mild left-sided diverticulosis 3. Grade 1-2 internal hemorrhoids Plan: I will follow-up the polyp histology and recommend repeat screening/surveillance colonoscopy again in 5 years based upon the pathology. I would encourage psyllium fiber supplementation on a long-term daily maintenance basis.
[2025-11-05 11:28] VITALS: BP 150/95; PULSE 93; RESP 18; TEMP 36.6; O2SAT 96
[2025-11-05] MEDS: LACTATED RINGERS 1000ML 1,000 ML 50 ML IV (11:35)
[2025-11-05 11:39] LABS: POC Glucose,Bedside 114 gm/dL (70-110)
--- NOTE | 2025-11-05 11:49 | P.PNANES_ITS ---
[facility] Disclaimer: The information contained in this section may have been updated after the patient was seen, as this information can be updated by other users. Medical History Fracture of right forearm Surgical History S/P cholecystectomy Family History Other Coronary artery disease Diabetes Heart attack Hyperlipidemia Hypertension Social History Smoking Status: Never smoker alcohol intake: current alcohol intake frequency: a few times a month substance use type: denies use current occupational status: employed Travel in the last 8 weeks?: None household members: spouse and children housing: house marital status: current occupational exposures/hazards: No caffeine: Yes Have you lived/traveled outside [place] in past 30 days?: No Contact w/someone who lives/traveled outside [place] past 30 days?: No Exposure to someone with infectious disease in past 14 days?: No Do you have a fever (greater than 100.4 F or 38 C)?: No Have you tested positive for COVID-19?: No Exposed to someone with COVID-19 in past 14 days?: No Do you have a sore throat?: No Do you have a cough?: No Do you have any weakness?: No Do you have any diarrhea?: No Are you experiencing any unusual bleeding?: No Do you have any muscle aches/pain?: No Do you have any abdominal pain?: No Are you experiencing loss of taste or smell?: No [facility] Anesthesia Checklist Patient Identification Patient Identification: Arm Band and Verbal (Name & ) Structural Data Admitted From: Home Planned Operative Procedure/s: Colonoscopy Consent for Planned Operative Procedure(s) Verified: Yes Verified Documents: Surgical Consent NPO Status Verified Time NPO: 00:00 Additional verifications Fingerstick Blood Glucose: 114 Anesthesia Reactions: No Airway Assessment Mallampati Score:: Class II C-Spine Mobility Assessed: Yes TMJ Mobility Assessed: Yes Dentition: Good Dentition Neurological Assessment Level of Consciousness: Awake, Alert and Appropriate Hx Seizures: No Numbness or tingling in extremities: No Anesthesia Plan Anesthesia Risk discussed: Yes Anesthesia Plan: Verified ASA Class: II Anesthesia Type: MAC
[2025-11-05 12:38] VITALS: BP 115/71; PULSE 80; RESP 16; TEMP 36.2; O2SAT 94
[2025-11-05 12:47] VITALS: BP 113/68; PULSE 76; RESP 18; O2SAT 94
[2025-11-05 12:58] VITALS: BP 108/64; PULSE 77; RESP 18; O2SAT 95
[2025-11-05 13:00] VITALS: BP 114/61; PULSE 69; RESP 18; O2SAT 96
== END 2025-11-05 13:08 | disposition home or self-care (01) ==
PROVIDERS: PCP Family Medicine; Visit Provider Internal Medicine Gastroenterology
PROC: 0DJD8ZZ Inspection of Lower Intestinal Tract, Via Natural or Artificial Opening Endoscopic (ICD-10-PCS; CPT 45378; principal; 2025-11-05 12:30)
DX: Z12.11 Encounter for screening for malignant neoplasm of colon (principal); K64.0 First degree hemorrhoids; K64.1 Second degree hemorrhoids; K57.30 Diverticulosis of large intestine without perforation or abscess without bleeding; D12.0 Benign neoplasm of cecum; D12.4 Benign neoplasm of descending colon; K62.1 Rectal polyp; E11.9 Type 2 diabetes mellitus without complications; I10 Essential (primary) hypertension; E78.00 Pure hypercholesterolemia, unspecified; Z90.49 Acquired absence of other specified parts of digestive tract; Z79.84 Long term (current) use of oral hypoglycemic drugs; Z79.899 Other long term (current) drug therapy; Z79.85 Long-term (current) use of injectable non-insulin antidiabetic drugs
CPT/HCPCS: 45385; 82962; J2003; J2704; J7120